=== PATIENT | female | born 1950 | race Two or more races ===

== ENCOUNTER → 2024-07-23 | Outpatient (CLI) | payer MEDICAID, SELFPAY ==
--- NOTE | 2024-07-23 16:00 | XR_ITS ---
Examination: Retroperitoneal ultrasound, complete Technique: Multiple high resolution grayscale images of the retroperitoneum obtained, including kidneys and bladder. Exam date and time:July 23, 2024 1423 hours INDICATIONS: Pyuria on laboratory urinalysis 2 weeks ago FINDINGS: Right kidney 11.4 cm cortex 1.7 cm Left kidney 10.3 cm cortex 1.7 cm Midpole left renal calculus 5 mm Mild bilateral renal parenchymal scar formation No hydronephrosis Contracted urinary bladder IMPRESSION: 5 mm nonobstructing left renal calculus
== END | disposition home or self-care (01) ==
DX: N20.0 Calculus of kidney (principal)
CPT/HCPCS: 76770

== ENCOUNTER → 2024-09-29 | Outpatient (CLI) | payer MEDICAID, SELFPAY ==
--- NOTE | 2024-09-29 13:15 | XR_ITS ---
Examination: Screening digital mammography, bilateral Computer aided detection 3-D breast Tomosynthesis, bilateral Date and time of exam: September 29, 2024 1251 hours Compared to mammograms dating to October 15, 2013 Indication: Screening Technique: Nonmagnified MLO, CC views of the breasts to been obtained, reconstructed from 3-D Tomosynthesis images. R2 computer aided detection program utilized for evaluation of suspicious masses and/or abnormal calcifications. 3-D Tomosynthesis images obtained. Findings: Scattered areas of fibroglandular density. Benign calcifications. No interval suspicious masses Impression: BI-RADS category II: Benign Findings. Recommend 1 year follow-up mammogram.
== END | disposition home or self-care (01) ==
LOC: CDIM 12:42
DX: Z12.31 Encounter for screening mammogram for malignant neoplasm of breast (principal); R92.323 Mammographic fibroglandular density, bilateral breasts
CPT/HCPCS: 77063; 77067

== ENCOUNTER → 2024-12-10 | Outpatient (CLI) | payer MEDICAID, SELFPAY ==
--- NOTE | 2024-12-10 15:30 | XR_ITS ---
Examination: Retroperitoneal ultrasound, complete Technique: Multiple high resolution grayscale images of the retroperitoneum obtained, including kidneys and bladder. Exam date and time:December 10, 2024 1341 hours INDICATIONS: History flank pain kidney stones FINDINGS: Right kidney 11.0 cm cortex 1.5 cm Left kidney 10.3 cm cortex 1.8 cm 7 mm midpole left renal calculus No hydronephrosis No bladder mass or bladder calculi Bladder prevoid volume 300 cc IMPRESSION: 7 mm nonobstructing left renal calculus
== END | disposition home or self-care (01) ==
LOC: CDIM 15:27
DX: N20.0 Calculus of kidney (principal)
CPT/HCPCS: 76770

== ENCOUNTER → 2024-12-22 | Outpatient (CLI) | payer MEDICAID, SELFPAY ==
--- NOTE | 2024-12-22 14:00 | XR_ITS ---
Examination: Abdomen sonogram, complete Date and time of exam: December 22, 2024 1428 hours INDICATIONS: History 7 mm calculus left kidney on ultrasound December 10, 2024. Technique: Multiple real-time grayscale transabdominal sonographic images of the abdomen have been obtained. Findings: Multiple gallstones Gallbladder wall 0.48 cm no edema Common bile duct 0.4 cm Pancreatic head 2.0 cm Aorta not enlarged. Liver 13.0 cm fatty infiltration Normal hepatopedal portal venous flow Patent IVC Right kidney 10.0 cm cortex 1.3 cm Left kidney 11.1 cm cortex 1.9 cm 5 mm midpole calculus Spleen 8.0 cm IMPRESSION: Cholelithiasis Thickened gallbladder wall, clinical correlation advised, consider HIDA scan follow-up 5 mm mid pole left renal calculus
== END | disposition home or self-care (01) ==
LOC: CDIM 14:17
DX: K80.20 Calculus of gallbladder without cholecystitis without obstruction (principal); N20.0 Calculus of kidney
CPT/HCPCS: 76700

== ENCOUNTER 2025-02-25 12:18 | Outpatient (RCR) | payer MEDICAID, SELFPAY ==
--- NOTE | 2025-02-25 12:30 | XR_ITS ---
Examination: HIDA, hepatobiliary radioisotope scan Date and time of exam: February 25, 2025, 1432 hours INDICATIONS: Epigastric pain 18 months, ultrasound December 22, 2024 cholelithiasis, thickened gallbladder wall Technique: 5.5 mCi of 99M Hepatolite administered. Serial imaging then obtained from immediate through 60 minutes. Findings: Radioisotope activity within the liver is reasonably homogenous. Common bile duct small bowel activity noted Impression: No gallbladder activity, abnormal study, cystic duct obstruction
== END 2025-03-02 23:59 | disposition home or self-care (01) ==
LOC: SNUC 12:18
DX: R10.811 Right upper quadrant abdominal tenderness (principal)
CPT/HCPCS: 78227; A9537

== ENCOUNTER → 2025-03-22 | Outpatient (CLI) | payer MEDICAID, SELFPAY ==
--- NOTE | 2025-03-22 10:30 | XR_ITS ---
Examination: Pelvic ultrasound, transabdominal, complete Technique: Transabdominal ultrasound of the pelvis performed using grayscale imaging Date and time of exam: March 22, 2025, 1047 hours INDICATIONS: Pelvic pain beginning 1 month ago FINDINGS: Uterus 7.6 cm with small calcifications No discrete uterine mass Endometrial stripe 0.5 cm Ovaries obscured by bowel gas IMPRESSION: Limited study No uterine mass
== END | disposition home or self-care (01) ==
DX: R10.30 Lower abdominal pain, unspecified (principal)
CPT/HCPCS: 76856

== ENCOUNTER 2025-03-31 06:45 | Day surgery (SDC) | payer MEDICAID, SELFPAY ==
--- NOTE | 2025-03-29 10:05 | EKG_ITS ---
[facility] Test Date: 2025-03-29 Pat Name: ANA LOGAN Department: Room: - Gender: Female Property Officer: RTSALTY : 1950 Requested By: David Bryant Order Number: [id number] Reading MD: David Bryant Measurements Intervals Higden Rate: 77 P: 21 AL: 142 QRS: 23 QRSD: 77 T: 23 QT: 351 QTc: 398 Interpretive Statements SINUS RHYTHM POSSIBLE RIGHT VENTRICULAR CONDUCTION DELAY [RSR (QR) IN V1/V2] No previous ECG available for comparison /[id number]/[email or web address]/[id number].pdf
[2025-03-29 10:10] VITALS: BMI 21.9
[2025-03-29 11:11] LABS: Basophils # (Auto) 0.0 Thou/mm3 (0.0-0.2); Basophils % (Auto) 1 % (0-2.5); Eosinophils # (Auto) 0.1 Thou/mm3 (0.0-0.5); Eosinophils % (Auto) 2 % (0-10); Hematocrit 45.2 % (36.0-46.0); Hemoglobin 14.4 g/dL (12.0-16.0); Immature Granulocytes Auto 0.01 Thou/mm3 (0.00-0.00); Lymphocytes # (Auto) 2.0 Thou/mm3 (1.0-4.8); Lymphocytes % (Auto) 30 % (10-50); Mean Corpuscular HGB Conc 31.9 g/dl (31.0-37.0); Mean Corpuscular Hemoglobin 30.2 pg (25.0-35.0); Mean Corpuscular Volume 95 fL (80-100); Monocytes # (Auto) 0.4 Thou/mm3 (0.0-0.8); Monocytes % (Auto) 6 % (0-12); Neutrophils # (Auto) 4.1 Thou/mm3 (1.8-7.7); Neutrophils % (Auto) 61 % (37-80); Nucleated Red Blood Cell # 0.00 Thou/mm3 (0.00-0.00); Nucleated Red Blood Cell % 0 /100 WBC (0); Platelet Count 239 Thou/mm3 (140-440); RDW Standard Deviation 48.8 fL (36.4-46.3); Red Blood Count 4.77 Miln/mm3 (4.00-5.20); White Blood Count 6.7 Thou/mm3 (3.6-11.0)
[2025-03-29 11:14] LABS: INR 1.0 (0.9-1.3); Prothrombin Time 10.7 Seconds (9.0-12.2)
[2025-03-29 11:15] LABS: Alanine Aminotransferase 12 U/L (10-49); Albumin, Serum 4.7 gm/dL (3.4-4.8); Albumin/Globulin Ratio 1.7 (1.2-2.2); Alkaline Phosphatase 84 U/L (46-116); Anion Gap 8 (7-16); Aspartate Amino Transferase 19 U/L (0-34); BUN/Creatinine Ratio 21 Ratio (12-20); Bilirubin,Total 0.8 mg/dL (0.3-1.2); Blood Urea Nitrogen 15 mg/dL (9-23); Calcium 9.7 mg/dL (8.3-10.6); Calcium (Corrected) 9.7 mg/dL (8.5-10.1); Carbon Dioxide 29.9 mMol/L (20.0-31.0); Chloride 102 mMol/L (98-107); Creatinine (Component) 0.7 mg/dL (0.6-1.3); Estimated Creatinine Clearance 55.8 mL/min (>60); Globulin 2.7 gm/dL (2.3-3.5); Glucose 110 mg/dL (74-106); Osmolality,Calculated 281 (275-295); Potassium 4.2 mMol/L (3.4-5.1); Sodium 140 mMol/L (136-145); Total Protein 7.4 gm/dL (5.7-8.2); eGFR > 60 See Note
--- NOTE | 2025-03-30 16:08 | SUR.PREOP ---
Pt notified to come in at 0700 tomorrow.
[2025-03-31] VITALS (9 sets, daily range): BP systolic 122–156; BP diastolic 55–81; PULSE 66–80; RESP 12–19; TEMP 36.7–37.1; O2SAT 99–100; BMI 21.9
--- NOTE | 2025-03-31 09:31 | ESOP_ITS ---
Date of Procedure 03/31/25 Pre Op Diagnosis Symptomatic cholelithiasis Post Op Diagnosis Cholelithiasis with cholecystitis Procedure Laparoscopic cholecystectomy Findings Thick-walled gallbladder with multiple gallstones and chronic cholecystitis. Anterior surface of the liver was smooth without nodules or any lesions. Procedure Description Patient was brought into the operating room in supine position. After administration of general endotracheal anesthesia abdomen was prepped and draped in standard surgical manner. A Veress needle was inserted through the umbilicus and pneumoperitoneum was obtained up to 15 mmHg. The Veress needle was then removed, a 5 mm infraumbilical incision was made and the 5mm trocar was inserted. Laparoscopic camera was placed. Under direct visualization a laparoscopic camera a 10 mm trocar was placed in subxiphoid and two 5 mm trocars placed in right upper quadrant. The anterior surface of the liver was smooth without nodules or any lesions. The gallbladder was identified and was noted to be thick-walled with multiple gallstones and evidence of chronic cholecystitis. It was retracted cephalad and laterally. Dissection started near the infundibulum of gallbladder where cystic duct and gallbladder junction clearly identified. The cystic duct was circumferentially dissected off the peritoneum and surrounding inflammatory tissue. The critical view of safety was clearly demonstrated. Cystic duct was then divided between 2 endoclips proximally and one distally. The cystic artery was similarly dissected and divided. The gallbladder was then from the liver bed using electrocautery. The gallbladder was then placed inside an Endo Catch and removed from the abdomen utilizing subxiphoid trocar site. The area was copiously and thoroughly washed and irrigated, all the fluid was suctioned and the suction fluid returned clear. Hemostasis achieved using electrocautery. Endoclips noted be in place and intact without any bleeding or any leakage. Hemostasis was adequate and satisfactory. The subxiphoid trocar sites fascial defect was closed with 0 Vicryl using Endo Closure device. Instruments and trocars removed, pneumoperitoneum was evacuated and the incisions closed with 4-0 Monocryl in subcuticular fashion. Instrument needle and sponge counts were all reported to be correct X2. Patient tolerated the procedure well, was extubated, breathing spontaneously and without difficulty and was transferred to postanesthesia care in stable condition. Anesthesia GETA and local Pathology / specimen Other (Gallbladder and contents) Estimated Blood Loss 10 Condition Stable Disposition PACU Surgeon David Bryant MD Surgical Staff Operation Date: 03/31/25 09:00 Case Staff BUSINESS OFFICE TECHNOLOGY INSTRUCTOR: Sammy Marcus RN First Assistant: Shadia Arana
--- NOTE | 2025-03-31 10:17 | SUR.PHASEI ---
0941: Pt received in [facility] via [place]. Report from Cynthia ESCOBEDO and Viet DENTON. Oral airway in place. Resp even, unlabored. VS stable. Surgical sites x4 to abdomen secured with dermabond. Areas dry, clean, intact with no swelling, discoloration. 0945: Oral airway dc'd. Resp even, unlabored. 1000: Pt has been resting with no complaints voiced. Resp even, unlabored. VS stable. Surgical sites remain dry, clean, intact with no swelling, discoloration. Denies pain.
--- NOTE | 2025-03-31 10:25 | SUR.PHASEII ---
1025: Pt more awake, alert. Resp even, unlabored. VS stable. Surgical sites remain dry, intact. No swelling, discoloration. Denies pain. Sitting up tolerating po fluids with no difficulty swallowing and no n/v.
--- NOTE | 2025-03-31 12:52 | SUR.PHASEII ---
1108: Pt fully awake, oriented x3. Daughter at bedside. VS stable. Surgical sites remain dry, clean, intact. Pt states she has very little pain and only with movement. Pt dressed and assisted to transport chair. Ambulation steady. Pt and daughter stated understanding of discharge instructions via [employer]. Pt discharged from [facility] in stable condtion.
== END 2025-03-31 11:08 | disposition home or self-care (01) ==
PROVIDERS: PCP Family Medicine; Referring Provider Surgery; Visit Provider Surgery
PROC: 0FT44ZZ Resection of Gallbladder, Percutaneous Endoscopic Approach (ICD-10-PCS; CPT 47562; principal; 2025-03-31 08:45)
DX: K80.10 Calculus of gallbladder with chronic cholecystitis without obstruction (principal); Z01.810 Encounter for preprocedural cardiovascular examination; E11.9 Type 2 diabetes mellitus without complications; I10 Essential (primary) hypertension; Z79.899 Other long term (current) drug therapy; Z79.84 Long term (current) use of oral hypoglycemic drugs
CPT/HCPCS: 47562; 36415; 80053; 85025; 85610; 93005; A4217; A4649; J0131; J0694; J1100; J1885; J2371; J2405; J2704; J3010; J3490

== ENCOUNTER → 2025-04-18 | Outpatient (CLI) | payer MEDICAID, SELFPAY ==
--- NOTE | 2025-04-18 15:57 | XR_ITS ---
Examination: Abdomen AP single view Technique: AP portable supine abdomen, single view Exam date and time: April 18, 2025, 1600 hours INDICATIONS: 7 mm mid pole left renal calculus on renal sonogram December 10, 2024 FINDINGS: Moderate air and stool in the colon overlies the kidneys No renal or ureteral calculi depicted Moderate osteopenia IMPRESSION: No renal or ureteral calculi demonstrated
== END | disposition home or self-care (01) ==
LOC: CDIM 15:46
PROVIDERS: Referring Provider Surgery; Visit Provider Surgery
DX: N20.0 Calculus of kidney (principal)
CPT/HCPCS: 74018